=== PATIENT | male | born 1965 | race Hispanic/Latino ===

== ENCOUNTER → 2019-04-04 09:57 | Outpatient (CLI) | payer SELFPAY ==
[2019-04-04 11:41] LABS: Rubella Antibody IgG 47.9 IU/mL (>15)
[2019-04-06 15:15] LABS: Var-Zoster Immunity Screen > or = 1:4
[2019-04-06 16:18] LABS: Rubeola Measles IgG > 300.00 AU/mL (< 25.00)
== END ==
PROVIDERS: PCP Internal Medicine; Visit Provider Internal Medicine
DX: Z28.3 Underimmunization status (principal); Z91.89 Other specified personal risk factors, not elsewhere classified
CPT/HCPCS: 36415; 86735; 86762; 86765; 86787

== ENCOUNTER → 2019-04-05 14:44 | Outpatient (CLI) | payer SELFPAY ==
[2019-04-10 14:13] LABS: Medtox Non-DOT Urine Drug Scre See Separate Report
== END ==
PROVIDERS: PCP Internal Medicine; Visit Provider Internal Medicine
DX: Z02.1 Encounter for pre-employment examination (principal)
CPT/HCPCS: 81099

== ENCOUNTER → 2020-02-06 09:53 | Outpatient (CLI) | payer SELFPAY ==
[2020-02-08 20:49] LABS: QuantiFERON Mitogen Value 7.42 IU/mL (.); QuantiFERON Nil Value 0.13 IU/mL (.); QuantiFERON TB Gold Plus Negative (Negative); QuantiFERON TB1 Ag Value 0.15 IU/mL (.); QuantiFERON TB2 Ag Value 0.13 IU/mL (.)
== END ==
PROVIDERS: PCP Internal Medicine; Referring Provider Internal Medicine; Visit Provider Internal Medicine
DX: Z11.1 Encounter for screening for respiratory tuberculosis (principal)
CPT/HCPCS: 36415; 86480